=== PATIENT | female | born 1990 | race Two or more races ===

== ENCOUNTER 2016-08-28 20:53 | Emergency (ER) | payer MEDICAID, OTHER, SELFPAY ==
[~2016-08-28] VITALS: Ht 149.9 cm; Wt 72.0 kg
[2016-08-28] MEDS ORDERED: SODIUM CHLORIDE 0.9% 1,000ML IVBOLUS ONE (22:00)
[2016-08-28] MEDS ORDERED: ONDANSETRON 2MG/ML, 2ML IVPush ONE (22:00)
[2016-08-28] MEDS ORDERED: SODIUM CHLORIDE FLUSH 10ML SYR IVF ONE (22:00)
[2016-08-28 22:22] LABS: BLOOD UREA NITROGEN 5 mg/dL (7-18)
[2016-08-28 23:53] VITALS: BP 108/66
== END 2016-08-28 23:56 | disposition home or self-care (01) ==
LOC: ED 23:50
DX: O20.0 Threatened abortion (principal); Z3A.11 11 weeks gestation of pregnancy
CPT/HCPCS: 36415; 76801; 80048; 81001; 82040; 84702; 85025; 86901; 87077; 87086; 87186; 96360; 96361; 99285; J7030

== ENCOUNTER 2017-03-07 05:23 | Inpatient (IN) | payer OTHER ==
[~2017-03-07] VITALS: Ht 149.9 cm; Wt 81.3 kg
[2017-03-07 05:37] VITALS: BP 108/60
[2017-03-07] MEDS ORDERED: PREN-3 PO (05:55)
[2017-03-07] MEDS ORDERED: PLEASE ENTER HEIGHT AND WEIGHT MC SCH (06:00)
[2017-03-07] MEDS ORDERED: LACTATED RINGERS 1,000 ML IVBOLUS ONE (06:00)
[2017-03-07] MEDS ORDERED: SODIUM CITRATE/CITRIC ACID 30 ML UDC PO ONE (06:00)
[2017-03-07] MEDS ORDERED: METOCLOPRAMIDE 5 MG/ML, 2ML IV ONE (06:00)
[2017-03-07] MEDS ORDERED: NEWBORN KIT ONE (06:02)
[2017-03-07 06:08] LABS: HEMATOCRIT 34.3 % (34.6-47.8); HEMOGLOBIN 11.6 g/dL (11.7-16.4); WHITE BLOOD COUNT 8.1 x10^3/uL (3.4-10)
[2017-03-07] MEDS ORDERED: OXYTOCIN 30U/ 0.9% NaCL 500ML 500 ML ONE (06:14)
[2017-03-07] MEDS: LACTATED RINGERS 1,000 ML IV SCH ×8 (06:18→21:45)
[2017-03-07] MEDS ORDERED: OXYTOCIN 10 UNITS/ML, 1ML ONE (07:22)
[2017-03-07] MEDS ORDERED: CEFAZOLIN 1,000 MG ONE (07:22)
[2017-03-07] MEDS ORDERED: HYDROmorphone 2 MG/ML, 1ML ONE (07:22)
[2017-03-07] MEDS ORDERED: ONDANSETRON 2MG/ML, 2ML ONE (07:22)
[2017-03-07] MEDS ORDERED: FENTANYL PF 100 MCG/2ML ONE (07:22)
[2017-03-07] MEDS: OXYTOCIN 30U/ 0.9% NaCL 500ML 500 ML IV SCH ×4 (08:26→18:26)
[2017-03-07] MEDS ORDERED: LACTATED RINGERS 1,000 ML IV SCH (08:26)
[2017-03-07] MEDS ORDERED: MISOPROSTOL 200 MCG TABLET PR PRN (08:30)
[2017-03-07] MEDS ORDERED: ONDANSETRON 2MG/ML, 2ML IV PRN (08:30)
[2017-03-07] MEDS ORDERED: MEPERIDINE/PF 50 MG/ML IM PRN (08:30)
[2017-03-07] MEDS: PRENATAL VIT/IRON/FA 1 EACH TABLET PO SCH (09:00)
[2017-03-07] MEDS ORDERED: KETOROLAC 30 MG/1 ML ONE (09:43)
[2017-03-07] MEDS: KETOROLAC 30 MG/1 ML IV SCH ×3 (09:44→22:41)
[2017-03-07 10:40] VITALS: BP 101/56
[2017-03-07] MEDS: OXYcodone/APAP 5/325MG TABLET PO PRN ×3 (10:59→20:28)
[2017-03-07 15:50] VITALS: BP 96/50
[2017-03-07 16:14] LABS: HEMATOCRIT 30.1 % (34.6-47.8); HEMOGLOBIN 9.9 g/dL (11.7-16.4); WHITE BLOOD COUNT 9.7 x10^3/uL (3.4-10)
[2017-03-07] MEDS ORDERED: LACTATED RINGERS 500 ML IVBOLUS ONE (16:30)
[2017-03-07 20:00] VITALS: BP 107/64
[2017-03-07] MEDS: DOCUSATE 100 MG CAPSULE PO PRN (20:28)
[2017-03-08] MEDS: LACTATED RINGERS 1,000 ML IV SCH ×7 (00:26→16:26)
[2017-03-08 00:30] VITALS: BP 108/64
[2017-03-08] MEDS: OXYTOCIN 30U/ 0.9% NaCL 500ML 500 ML IV SCH ×4 (01:31→14:26)
[2017-03-08] MEDS: KETOROLAC 30 MG/1 ML IV SCH ×4 (02:37→21:12)
[2017-03-08 04:00] VITALS: BP 116/62
[2017-03-08] MEDS: OXYcodone/APAP 5/325MG TABLET PO PRN ×3 (04:50→23:17)
[2017-03-08 07:30] VITALS: BP 107/69
[2017-03-08] MEDS: PRENATAL VIT/IRON/FA 1 EACH TABLET PO SCH (08:29)
[2017-03-08] MEDS: DOCUSATE 100 MG CAPSULE PO PRN ×2 (08:29→23:17)
[2017-03-08] MEDS ORDERED: MEASLES,MUMPS&RUBELLA VACC/PF 0.5 ML SQ-VACC ONE (17:00)
[2017-03-08 21:00] VITALS: BP 104/62
[2017-03-09] MEDS ORDERED: IBUPROFEN 600 MG TABLET ONE (07:01)
[2017-03-09] MEDS: IBUPROFEN 600 MG TABLET PO PRN ×2 (07:03→15:57)
[2017-03-09 07:45] VITALS: BP 105/62
[2017-03-09] MEDS: PRENATAL VIT/IRON/FA 1 EACH TABLET PO SCH (09:00)
[2017-03-09] MEDS ORDERED: IBUP-1222 PO (11:40)
[2017-03-09] MEDS ORDERED: OXYC-302 PO (11:41)
[2017-03-09] MEDS: OXYcodone/APAP 5/325MG TABLET PO PRN (15:57)
== END 2017-03-09 16:45 | disposition home or self-care (01) | DRG 766 ==
LOC: EDIP 05:23 → LDIP 05:29 → 2NW 10:27
PROVIDERS: ADMIT Obstetrics & Gynecology; ATTEND Obstetrics & Gynecology
PROC: 10D00Z1 Extraction of Products of Conception, Low, Open Approach (ICD-10-PCS; principal; 2017-03-07)
DX: O34.211 Maternal care for low transverse scar from previous cesarean delivery (principal); O24.420 Gestational diabetes mellitus in childbirth, diet controlled; Z37.0 Single live birth; Z3A.39 39 weeks gestation of pregnancy; Z23 Encounter for immunization; Z90.49 Acquired absence of other specified parts of digestive tract
CPT/HCPCS: 36415; 82962; 85025; 86850; 86900; J0690; J1170; J1885; J2405; J3010; J2590; J2765; J7120